=== PATIENT | female | born 1985 | race Caucasian/White ===

== ENCOUNTER → 2016-11-26 | Outpatient (CLI) | payer BC, OTHER ==
[~2016-11-26] MED LIST: ACHD5005 PO; CPR500T PO; HYDR-3583 PO; IBP600T1 PO; OCP; PREN1TAB14 PO; PREN1TAB39 PO
--- NOTE | 2016-11-26 17:34 | Diagnostic Imaging Report ---
Transabdominal and transvaginal pelvic ultrasound. INDICATION: Left lower quadrant pain. FINDINGS: The uterus is 6.6 x 4.6 x 4.2 cm. The endometrial stripe is 0.6 cm in thickness. No myometrial mass is seen. The right ovary is 2.9 x 3.2 x 1.2 cm. The left ovary is 3 x 2.4 x 2.7 cm. There is a hemorrhagic follicle suggested with a rim of increased vascularity compatible with a corpus luteum cyst in the left ovary measuring 1.5 cm. Color Doppler vascularity over both ovaries seen. There is a small amount of free fluid in the pelvis adjacent to the adnexa bilaterally. IMPRESSION: Small amount of free fluid in the pelvis. Small hemorrhagic corpus luteum cyst is suggested in the left ovary. Dictated by: Dictated on workstation # [id number]
== END ==
LOC: RAD 12:03
PROVIDERS: ATTEND Obstetrics & Gynecology
DX: R10.32 Left lower quadrant pain (principal); Z97.5 Presence of (intrauterine) contraceptive device
CPT/HCPCS: 76830; 76856